=== PATIENT | female | born 1965 | race Caucasian/White ===

== ENCOUNTER 2018-07-07 04:12 | Emergency (ER) | payer OTHER ==
[~2018-07-07] VITALS: Ht 165.1 cm; Wt 72.6 kg
[~2018-07-07 04:12] MED LIST: ALBUTEROL SULFATE 2.5 MG/3 ML NEBU ONE; IPRATROPIUM BROMIDE 0.5 MG/2.5 ML NEBU ONE
[2018-07-07] MEDS ORDERED: AZIT250T13 PO (04:23)
--- NOTE | 2018-07-07 04:30 | NUR ---
Pt. ambulated into ED w/ c/o flu like symptoms, cough w/ wheeze, JJ and nasal congestion x 5 days, pt. is currently taken azithromycin but reports not feeling better yet,
--- NOTE | 2018-07-07 04:35 | NUR ---
at bedside for MSE
--- NOTE | 2018-07-07 04:42 | NUR ---
RT called for breathing tx,
[2018-07-07] MEDS ORDERED: IPRATROPIUM BROMIDE 0.5 MG/2.5 ML NEBU NEB ONE (04:45)
[2018-07-07] MEDS ORDERED: ALBUTEROL SULFATE 2.5 MG/3 ML NEBU NEB ONE (04:45)
--- NOTE | 2018-07-07 04:53 | NUR ---
RT at bedside for breathing tx, bf at bedside
--- NOTE | 2018-07-07 05:11 | NUR ---
Rad. tech. at bedside for CXR
--- NOTE | 2018-07-07 05:54 | NUR ---
Patient discharged to home in stable conditon. Written and verbal after care instructions given. Patient verbalizes understanding of instructions. Pt. d/c w/ prescription per MD order, all d/c papers signed, all belongings w/ pt., ambulated off unit w/ steady gait, ID band removed, NAD
== END 2018-07-07 05:57 | disposition home or self-care (01) ==
LOC: ER 04:12
DX: J40 Bronchitis, not specified as acute or chronic (principal); F17.290 Nicotine dependence, other tobacco product, uncomplicated; Z88.2 Allergy status to sulfonamides; Z79.2 Long term (current) use of antibiotics
CPT/HCPCS: 71045; A4663; J3590

== ENCOUNTER 2019-05-27 09:26 | Emergency (ER) | payer OTHER ==
[~2019-05-27] VITALS: Ht 165.1 cm; Wt 72.6 kg
[~2019-05-27 09:26] MED LIST changes: -ALBUTEROL SULFATE 2.5 MG/3 ML NEBU ONE; +AZIT250T13 PO; -IPRATROPIUM BROMIDE 0.5 MG/2.5 ML NEBU ONE
[2019-05-27] MEDS ORDERED: IBUPROFEN 800 MG TABLET PO ONE (09:45)
[2019-05-27] MEDS ORDERED: IBUPROFEN 800 MG TABLET ONE (09:56)
--- NOTE | 2019-05-27 11:13 | NUR ---
Patient discharged to home in stable conditon. Written and verbal after care instructions given. Patient verbalizes understanding of instructions.
== END 2019-05-27 11:14 | disposition home or self-care (01) ==
LOC: ER 09:26
DX: M19.032 Primary osteoarthritis, left wrist (principal); F17.200 Nicotine dependence, unspecified, uncomplicated; Z88.2 Allergy status to sulfonamides; Z79.2 Long term (current) use of antibiotics
CPT/HCPCS: 73110; 73130; A4663